=== PATIENT | female | born 1960 | race Caucasian/White ===

== ENCOUNTER 2019-05-04 17:39 | Emergency (ER) | payer BC, MEDICAID ==
[~2019-05-04] VITALS: Ht 157.5 cm; Wt 52.2 kg
--- NOTE | 2019-05-04 17:47 | NUR ---
BIBA RA 89 from Home c/o pain all over/especially joints/dry cough feel fever and nausea/vomiting/diarrhea" PT is aaox4, not in respiratory distress, hooked to residential monitor, kept rested and comfortable, will continue to monitor.
--- NOTE | 2019-05-04 18:00 | NUR ---
SEEN AND EXAMINED BY .
--- NOTE | 2019-05-04 18:05 | NUR ---
IV LINE ESTABLISHED, BLOOD DRAWN AND SENT TO LAB.
[2019-05-04] MEDS ORDERED: ACETAMINOPHEN ES 500 MG TABLET ONE (18:10)
--- NOTE | 2019-05-04 18:16 | NUR ---
PRESS LOADER AT BEDSIDE FOR XRAY.
[2019-05-04 18:19] LABS: BASOPHILS # (AUTO) 0.1 /CMM (0.0-0.2); BASOPHILS % (AUTO) 0.9 % (0.0-2.0); EOSINOPHILS % (AUTO) 1.7 % (0.0-6.0); HEMATOCRIT 31 % (33-45); HEMOGLOBIN 10.3 g/dL (11.5-14.8); LYMPHOCYTES # (AUTO) 1.8 /CMM (0.8-4.8); LYMPHOCYTES % (AUTO) 29.9 % (20.0-44.0); MEAN CORPUSCULAR HGB CONC 33 g/dl (31.0-36.0); MEAN CORPUSCULAR VOLUME 105 fL (82-100); MONOCYTES # (AUTO) 0.3 /CMM (0.1-1.30); MONOCYTES % (AUTO) 5.2 % (2.0-12.0); NEUTROPHILS # (AUTO) 3.7 /CMM (1.8-8.9); NEUTROPHILS % (AUTO) 62.3 % (43.0-81.0); PLATELET COUNT (AUTO) 198 /CMM (150-450); RED BLOOD CELL COUNT(AUTO) 2.96 MIL/uL (4.0-5.2); WHITE BLOOD COUNT (AUTO) 5.9 K/uL (4.3-11.0)
[2019-05-04] MEDS ORDERED: ACETAMINOPHEN ES 500 MG TABLET PO ONE (18:30)
[2019-05-04] MEDS ORDERED: IV NS 0.9% 1,000 ML BAG IV ONE (18:30)
[2019-05-04] MEDS ORDERED: HYDR-3203 PO ×2 (18:39)
[2019-05-04] MEDS ORDERED: LEVO125T8 PO (18:39)
[2019-05-04] MEDS ORDERED: MORP30TA59 PO (18:39)
[2019-05-04] MEDS ORDERED: SERT100T PO (18:39)
[2019-05-04] MEDS ORDERED: TAMS-12 PO (18:39)
[2019-05-04] MEDS ORDERED: TOPI100T38 PO (18:39)
[2019-05-04] MEDS ORDERED: CLON2TAB11 PO (18:39)
[2019-05-04] MEDS ORDERED: SUMA100T PO (18:39)
[2019-05-04] MEDS ORDERED: DIME240C2 PO (18:39)
[2019-05-04] MEDS ORDERED: CARI350T PO (18:39)
[2019-05-04] MEDS ORDERED: DALF10TA PO (18:39)
[2019-05-04] MEDS ORDERED: DEXT1CAP3 PO (18:39)
[2019-05-04] MEDS ORDERED: SUMA6CAR SQ (18:39)
[2019-05-04] MEDS ORDERED: BUPR150T10 PO (18:39)
[2019-05-04] MEDS ORDERED: NALO25TA PO (18:39)
[2019-05-04] MEDS ORDERED: ARMO250T2 PO (18:39)
[2019-05-04 18:40] LABS: CALCIUM, SERUM 8.7 mg/dL (8.5-10.1); CREATININE 0.9 mg/dL (0.6-1.3)
--- NOTE | 2019-05-04 18:41 | NUR ---
CALLED MAIN LAB TO FOLLOW UP COVID TEST KIT NO ANSWER.
[2019-05-04 18:46] LABS: ALBUMIN 3.5 g/dL (3.4-5.0); BILIRUBIN,DIRECT 0.1 mg/dL (0.0-0.2); BILIRUBIN,TOTAL 0.3 mg/dL (0.2-1.0); TOTAL PROTEIN, SERUM 6.9 g/dL (6.4-8.2)
--- NOTE | 2019-05-04 19:16 | NUR ---
BECERRA SWAB OBTAINED AND SENT TO LAB.
[2019-05-04 20:01] VITALS: BP 121/74
--- NOTE | 2019-05-04 20:01 | NUR ---
Patient discharged to home in stable condition. Written and verbal after care instructions given. Patient verbalizes understanding of instruction.IV removed. Catheter intact and site benign. Pressure and 4x4 applied to site. No bleeding noted.
== END 2019-05-04 20:02 | disposition home or self-care (01) ==
LOC: ER 17:39
DX: J06.9 Acute upper respiratory infection, unspecified (principal); M79.18 Myalgia, other site; R19.7 Diarrhea, unspecified; G35 Multiple sclerosis; G89.29 Other chronic pain; Z88.2 Allergy status to sulfonamides; Z88.1 Allergy status to other antibiotic agents; Z79.899 Other long term (current) drug therapy; Z20.828 Contact with and (suspected) exposure to other viral communicable diseases
CPT/HCPCS: 36415; 71045; 80048; 80076; 83690; 85025; 87635; 96360; 99284; J7030; U0002

== ENCOUNTER 2019-06-19 14:11 | Emergency (ER) | payer BC, OTHER ==
[~2019-06-19] VITALS: Ht 152.4 cm; Wt 49.9 kg
[~2019-06-19 14:11] MED LIST: ARMO250T2 PO; BUPR150T10 PO; CARI350T PO; CLON2TAB11 PO; DALF10TA PO; DEXT1CAP3 PO; DIME240C2 PO; HYDR-3203 PO; LEVO125T8 PO; MORP30TA59 PO; NALO25TA PO; SERT100T PO; SUMA100T PO; SUMA6CAR SQ; TAMS-12 PO; TOPI100T38 PO
--- NOTE | 2019-06-19 14:20 | NUR ---
"Lower abdominal pain x1wk. Worse now pain stronger-cant stand it". Patient a/ox4, breathing even and unlabored, no sob noted, patient reported she's constipated. Needs attended. Kept comfortable.
[2019-06-19] MEDS ORDERED: IV NS 0.9% 1,000 ML IV ONE (15:00)
[2019-06-19 15:03] LABS: BASOPHILS % (AUTO) 0.7 % (0.0-2.0); EOSINOPHILS % (AUTO) 3.4 % (0.0-6.0); HEMATOCRIT 31 % (33-45); HEMOGLOBIN 10.2 g/dL (11.5-14.8); LYMPHOCYTES # (AUTO) 1.8 /CMM (0.8-4.8); LYMPHOCYTES % (AUTO) 39.9 % (20.0-44.0); MEAN CORPUSCULAR HGB CONC 33 g/dl (31.0-36.0); MEAN CORPUSCULAR VOLUME 107 fL (82-100); MONOCYTES # (AUTO) 0.4 /CMM (0.1-1.30); MONOCYTES % (AUTO) 8.5 % (2.0-12.0); NEUTROPHILS # (AUTO) 2.1 /CMM (1.8-8.9); NEUTROPHILS % (AUTO) 47.5 % (43.0-81.0); PLATELET COUNT (AUTO) 156 /CMM (150-450); RED BLOOD CELL COUNT(AUTO) 2.89 MIL/uL (4.0-5.2); WHITE BLOOD COUNT (AUTO) 4.4 K/uL (4.3-11.0)
[2019-06-19 15:21] LABS: CALCIUM, SERUM 8.3 mg/dL (8.5-10.1); CREATININE 1.1 mg/dL (0.6-1.3); POTASSIUM 4.3 mmol/L (3.5-5.1)
[2019-06-19 15:25] LABS: BILIRUBIN,DIRECT 0.1 mg/dL (0.0-0.2); BILIRUBIN,TOTAL 0.2 mg/dL (0.2-1.0)
[2019-06-19 15:35] LABS: APPEARANCE,URINE CLOUDY (CLEAR); BILIRUBIN,URINE NEGATIVE (NEGATIVE); BLOOD, URINE NEGATIVE Ery/uL (NEGATIVE); COLOR,URINE YELLOW (YELLOW); KETONES,URINE NEGATIVE (NEGATIVE); LEUKOCYTE ESTERASE ,URINE TRACE (NEGATIVE); NITRITE, URINE NEGATIVE (NEGATIVE); PROTEIN,URINE NEGATIVE (NEGATIVE); UGLUCOSE NEGATIVE (NEGATIVE); UROBILINOGEN,URINE 0.2 EU/dL (0.2)
[2019-06-19 16:10] LABS: BACTERIA,URINE 4+ /HPF (None Seen); RBC,URINE 0-2 /HPF (0-2); SQUAMOUS EPITHELIAL CELL,UR 0-2 /HPF (None Seen)
[2019-06-19] MEDS ORDERED: NA PHOS,M-B/NA PHOS,DI-BA 1 EA ENEMA RC ONE ×2 (17:00→17:01)
[2019-06-19] MEDS ORDERED: BISACODYL SUPP (10 MG) 10 MG/SUPP.RECT SUPP.RECT RC ONE ×2 (17:00→17:01)
--- NOTE | 2019-06-19 17:09 | NUR ---
PATIENT REFUSES TO HAVE THE MEDICATION AND SHE STATED SHE WILL TAKE THE MEDICATION HOME. DR. RABAGO MADE AWARE AND OK'D. INSTRUCTED PATIENT ON HOW TO USE. IV removed. Catheter intact and site benign. Pressure and 4x4 applied to site. No bleeding noted.Patient discharged to home in stable condition. Written and verbal after care instructions given. Patient verbalizes understanding of instruction.
[2019-06-19 17:11] VITALS: BP 90/55
== END 2019-06-19 17:12 | disposition home or self-care (01) ==
LOC: ER 14:18
DX: R10.84 Generalized abdominal pain (principal); K59.00 Constipation, unspecified; G89.4 Chronic pain syndrome; G43.909 Migraine, unspecified, not intractable, without status migrainosus; F32.9 Major depressive disorder, single episode, unspecified; F41.9 Anxiety disorder, unspecified; M79.7 Fibromyalgia; G35 Multiple sclerosis; M81.0 Age-related osteoporosis without current pathological fracture; Z90.89 Acquired absence of other organs; Z98.890 Other specified postprocedural states; Z88.2 Allergy status to sulfonamides; Z88.1 Allergy status to other antibiotic agents; Z88.8 Allergy status to other drugs, medicaments and biological substances; Z79.899 Other long term (current) drug therapy
CPT/HCPCS: 36415; 51702; 74176; 76705; 80048; 80076; 81001; 83690; 85025; 87086; 96360; 99285; J7030; 81000-TC